=== PATIENT | female | born 1970 | race African-American/Black ===

== ENCOUNTER 2023-01-23 10:40 | Inpatient (IN) | payer OTHER ==
[~2023-01-23] VITALS: Ht 165.1 cm; Wt 127.0 kg
[2023-01-23] MEDS ORDERED: KETOROLAC 15MG/ML VIAL IV ONE (11:15)
[2023-01-23] MEDS ORDERED: SODIUM CHLORIDE 0.9% 1,000 ML IV ONE (11:15)
[2023-01-23 12:08] LABS: BASOPHILS % 0.7 % (0.0-2.0); EOSINOPHILS % 0.9 % (0.0-5.0); HEMATOCRIT. 45.9 % (36.0-48.0); MEAN CORPUSCULAR HEMOGLOBIN 27.6 pg (28.0-32.0); MEAN CORPUSCULAR VOLUME 84.2 fL (81.0-99.0); MONOCYTES % 7.8 % (2.0-8.0); NEUTROPHILS % 47.6 % (40.0-76.0); PLATELET 181 x1000/uL (130-400); RED BLOOD CELL COUNT 5.45 mill/uL (4.2-5.4); RED CELL DISTRIBUTION WIDTH 15.5 % (11.6-14.6)
[2023-01-23 12:12] LABS: CHLORIDE 104 mEq/L (98-107)
[2023-01-23] MEDS ORDERED: ACETAMINOPHEN 325MG TABLET PO SCH (13:15)
[2023-01-23] MEDS: LIDOCAINE 5% PATCH TOP SCH (13:47)
[2023-01-23] MEDS ORDERED: IOHEXOL-350 100 ML BOTTLE ONE (14:11)
[2023-01-23] MEDS ORDERED: MECLIZINE 25MG TABLET PO ONE (15:15)
[2023-01-23] MEDS ORDERED: ONDANSETRON HCL 4MG/2ML INJ IV PRN (21:15)
[2023-01-23] MEDS ORDERED: DOCUSATE SODIUM 100MG CAPSULE PO PRN (21:15)
[2023-01-23] MEDS ORDERED: IPRATROPIUM/ALBUTEROL 0.5-3(2.5)MG/3ML NEB HHN PRN (21:15)
[2023-01-23] MEDS ORDERED: ACETAMINOPHEN 325MG TABLET PO PRN ×2 (21:15)
[2023-01-23] MEDS ORDERED: CLONIDINE 0.1MG TABLET PO PRN (21:15)
[2023-01-23] MEDS ORDERED: ALBUTEROL (0.083%) 2.5MG/3ML NEB HHN PRN (21:30)
[2023-01-23] MEDS ORDERED: IPRATROPIUM BROMIDE (0.02%) 0.5MG/2.5ML NEB HHN PRN (21:30)
[2023-01-23] MEDS ORDERED: DEXTROSE 50% WATER 50ML SYRINGE IV PRN (21:45)
[2023-01-23] MEDS ORDERED: ACET-2708 PO (23:35)
[2023-01-23] MEDS ORDERED: LIDO700A30 TP (23:35)
[2023-01-23] MEDS ORDERED: DICL100G31 TP (23:35)
[2023-01-23] MEDS ORDERED: CYCL10TA21 PO (23:35)
[2023-01-23] MEDS ORDERED: GABA-532 PO (23:35)
[2023-01-23 23:38] VITALS: BP 124/73
[2023-01-23 23:51] VITALS: BP 124/73
[2023-01-24 03:56] VITALS: BP 137/97
[2023-01-24] MEDS: BLOOD SUGAR DIAGNOSTIC STRIP TEST SCH ×4 (05:34→21:09)
[2023-01-24] MEDS: KETOROLAC 10MG TABLET PO PRN ×2 (06:18→19:59)
[2023-01-24 07:05] LABS: T4 FREE 0.94 ng/dL (0.76-1.46)
[2023-01-24 07:24] LABS: CLARITY URINE CLOUDY (CLEAR); COLOR URINE YELLOW (YELLOW); KETONES URINE NEGATIVE (NEGATIVE); LEUKOCYTE ESTERASE URINE TRACE (NEGATIVE); NITRITE URINE NEGATIVE (NEGATIVE); OCCULT BLOOD URINE TRACE (NEGATIVE); PROTEIN URINE NEGATIVE (NEGATIVE); SPECIFIC GRAVITY URINE 1.011 (1.005-1.030); UROBILINOGEN URINE 0.2 E.U./dL (0.2-1.0)
[2023-01-24 07:34] LABS: *AMPHETAMINES SCREEN URINE NEGATIVE (NEGATIVE); *BARBITURATES SCREEN URINE NEGATIVE (NEGATIVE); *BENZODIAZEPINES SCREEN URINE NEGATIVE (NEGATIVE); *COCAINE SCREEN URINE NEGATIVE (NEGATIVE); CANNABINOID URINE SCREEN NEGATIVE (NEGATIVE); METHADONE URINE SCREEN NEGATIVE (NEGATIVE); OPIATES URINE SCREEN NEGATIVE (NEGATIVE); PHENCYCLIDINE URINE SCREEN NEGATIVE (NEGATIVE)
[2023-01-24 08:00] VITALS: BP 110/55
[2023-01-24] MEDS: LIDOCAINE 5% PATCH TOP SCH (09:03)
[2023-01-24] MEDS: ENOXAPARIN 40MG/0.4ML SYR SUBCUT SCH ×2 (09:04→21:10)
[2023-01-24 12:00] VITALS: BP 134/87
[2023-01-24] MEDS: ASPIRIN 81MG TABLET PO SCH (13:14)
[2023-01-24 16:00] VITALS: BP 132/78
[2023-01-24 18:03] LABS: T4 FREE 0.92 ng/dL (0.76-1.46)
[2023-01-24 20:00] VITALS: BP 130/87
[2023-01-24] MEDS ORDERED: FAMOTIDINE 20MG TABLET PO SCH (21:00)
[2023-01-24 21:50] LABS: CREATINE KINASE 312 IU/L (26-192); CREATINE KINASE MB FRACTION < 1.0 ng/mL (0.5-3.6)
[2023-01-25] VITALS (7 sets, daily range): BP systolic 109–143; BP diastolic 67–79
[2023-01-25] MEDS: KETOROLAC 10MG TABLET PO PRN (01:59)
[2023-01-25 02:28] LABS: CREATINE KINASE MB FRACTION 1.2 ng/mL (0.5-3.6)
[2023-01-25] MEDS: BLOOD SUGAR DIAGNOSTIC STRIP TEST SCH ×2 (06:24→12:56)
[2023-01-25 07:39] LABS: HEMATOCRIT 45.1 % (36.0-48.0); HEMOGLOBIN 14.7 g/dL (12.0-16.0); MEAN CORPUSCULAR HEMOGLOBIN 27.5 pg (28.0-32.0); MEAN CORPUSCULAR VOLUME 84.2 fL (81.0-99.0); PLATELET 228 x1000/uL (130-400); RED BLOOD CELL COUNT 5.36 mill/uL (4.2-5.4); RED CELL DISTRIBUTION WIDTH 15.2 % (11.6-14.6)
[2023-01-25 07:47] LABS: CREATINE KINASE 248 IU/L (26-192); CREATINE KINASE MB FRACTION < 1.0 ng/mL (0.5-3.6)
[2023-01-25 08:03] LABS: CHLORIDE 103 mEq/L (98-107)
[2023-01-25] MEDS: ENOXAPARIN 40MG/0.4ML SYR SUBCUT SCH (10:32)
[2023-01-25] MEDS: ASPIRIN 81MG TABLET PO SCH (10:33)
[2023-01-25] MEDS: LIDOCAINE 5% PATCH TOP SCH (10:34)
[2023-01-25] MEDS ORDERED: ATOR10TA PO (15:39)
[2023-01-25] MEDS ORDERED: ASPI-1497 PO (15:40)
== END 2023-01-25 17:25 | disposition home or self-care (01) | DRG 312 ==
LOC: ER 10:40 → MICUSO 17:15 → EDBEDREQ 17:17 → EDBEDREQTM 17:17 → 7WST 23:15
PROVIDERS: ADMIT Internal Medicine; ATTEND Internal Medicine
DX: I95.1 Orthostatic hypotension (principal); Z68.42 Body mass index [BMI] 45.0-49.9, adult; E11.9 Type 2 diabetes mellitus without complications; E66.01 Morbid (severe) obesity due to excess calories; G89.29 Other chronic pain; W19.XXXA Unspecified fall, initial encounter; Z82.49 Family history of ischemic heart disease and other diseases of the circulatory system; Z79.82 Long term (current) use of aspirin; Z79.899 Other long term (current) drug therapy
CPT/HCPCS: 36415; 70496; 70498; 71045; 73030; 73080; 73502; 73560; 80053; 80061; 80305; 81003; 82550; 82553; 82962; 83036; 83880; 84439; 84443; 84484; 85025; 85027; 85379; 93005; 93970; 99285; J1650; J1885; J7030; J8597; Q9967